=== PATIENT | male | born 1975 | race Caucasian/White ===

== ENCOUNTER → 2019-03-20 09:45 | Outpatient (CLI) | payer OTHER | END | disposition home or self-care (01) | LOC: D.HCCARDIO 09:45 | PROVIDERS: ATTEND Internal Medicine Cardiovascular Disease | DX: I42.9 Cardiomyopathy, unspecified (principal) ==

== ENCOUNTER 2019-12-01 08:57 | Outpatient (CLI) | payer OTHER ==
[~2019-12-01] VITALS: Ht 167.6 cm; Wt 148.2 kg
[2019-12-01 09:25] LABS: BASOPHILS 0.2 % (0-2); HEMATOCRIT 33.3 % (42.0-54.0); HEMOGLOBIN 10.5 g/dL (13.5-17.5); IMMATURE GRANULOCYTES 0.8 % (0-5); LYMPHOCYTES 16.7 % (15-50); MCH 28.4 pg (26.0-34.0); MCHC 31.5 g/dL (31.0-37.0); MONOCYTES 9.7 % (2-11); NEUTROPHILS 69.6 % (40-80); PLATELET COUNT 323 10x3/uL (130-400); RDW 14.9 % (11.5-14.5); WBC 8.6 10x3/uL (4.8-10.8)
[2019-12-01 09:35] LABS: APTT 27.6 SECONDS (22.8-39.4); INR 1.17 (0.85-1.17); PROTIME 14.8 SECONDS (11.6-15.0)
[2019-12-01] MEDS ORDERED: COREG12.5 MG PO (09:49)
[2019-12-01] MEDS ORDERED: LISINOPRIL40 MG PO (09:50)
[2019-12-01] MEDS ORDERED: ZOFRAN4 MG PO (09:50)
[2019-12-01] MEDS ORDERED: PROTONIX40 MG PO (09:52)
[2019-12-01] MEDS ORDERED: CELEXA40 MG PO (09:53)
[2019-12-01] MEDS ORDERED: ALDACTONE25 MG PO (09:54)
[2019-12-01] MEDS ORDERED: LIPITOR20 MG (09:54)
[2019-12-01] MEDS ORDERED: BAYER CHEWABLE81 MG PO (09:55)
[2019-12-01 10:06] LABS: ALBUMIN 3.5 g/dL (3.4-5.0); ANION GAP 21.3 mmol/L (8-16); BILIRUBIN - TOTAL 0.61 mg/dL (0.2-1.3); CALCIUM 9.2 mg/dL (8.5-10.1); CARBON DIOXIDE 20.6 mmol/L (21.0-32.0); POTASSIUM - SERUM 4.9 mmol/L (3.5-5.1); PROTEIN - SERUM 6.8 g/dL (6.4-8.2)
[2019-12-01 10:10] VITALS: BP 101/46; Ht 167.6 cm; Wt 148.2 kg
--- NOTE | 2019-12-01 15:45 | NUR ---
RIGHT ABDOMINAL DRESSING C/D/I. LEFT HAND PIV DC'D WITH TIP INTACT. DISCHARGE INSTRUCTIONS REVIEWED WITH PATIENT. PATIENT DRESSING IN PERSONAL CLOTHING 1550 PATIENT DISCHARGED VIA WHEELCHAIR TO PRIVATE VEHICLE WHERE PATIENT'S MOTHER WAS WAITING. THIS NURSE ADVISES PATIENT'S MOTHER TO REVIEW DISCHARGE INSTRUCTIONS UPON ARRIVAL HOME, STATES UNDERSTANDING
== END 2019-12-01 15:50 | disposition home or self-care (01) ==
LOC: D.SP 08:57 → D.CT 11:00 → D.SP 15:50
PROVIDERS: Radiology Vascular & Interventional Radiology; ATTEND Internal Medicine
DX: R16.0 Hepatomegaly, not elsewhere classified (principal); K74.60 Unspecified cirrhosis of liver; I11.0 Hypertensive heart disease with heart failure; I50.9 Heart failure, unspecified